=== PATIENT | male | born 1945 | race Caucasian/White ===

== ENCOUNTER 2020-07-22 04:34 | Emergency (ER) | payer MEDICARE, OTHER ==
[~2020-07-22] VITALS: Ht 157.5 cm; Wt 59.1 kg
[~2020-07-22 04:34] MED LIST: ACET-3284 PO; ATOR40TA71 PO; ATRIN INH; BENA5TAB39 PO; BENZ-16 PO; CLOP75TA15 PO; CYAN250T3 PO; FOLI0.4T6 PO; LOPE2CAP PO; MAGN400O6 PO; MELO-100 PO; OSC500T PO; UMEC62.5 PO
[2020-07-22] MEDS ORDERED: methylPREDNISolone sod succ 125mg/2ml vial IV ONE (04:40)
[2020-07-22] MEDS ORDERED: albuterol 2.5 MG/3 ML nebule NEB ONE (04:40)
[2020-07-22 04:59] LABS: BASOPHILS % (AUTO) 0.2 % (0-1); EOSINOPHILS # (AUTO) 0.1 X10'3 (0-0.9); EOSINOPHILS % (AUTO) 1.2 % (0-6); HEMATOCRIT 42.4 % (42.0-52.0); HEMOGLOBIN 14.5 g/dl (14.0-17.9); LYMPHOCYTES # (AUTO) 1.4 X10'3 (1.1-4.8); LYMPHOCYTES % (AUTO) 17.9 % (21-51); MEAN CORPUSCULAR HEMOGLOBIN 36.1 PG (27.0-31.0); MEAN CORPUSCULAR HGB CONC 34.2 g/dL (33.0-36.5); MEAN CORPUSCULAR VOLUME 105.6 FL (78-98); MEAN PLATELET VOLUME 7.7 FL (7.4-10.4); MONOCYTES # (AUTO) 0.3 X10'3 (0-0.9); MONOCYTES % (AUTO) 4.5 % (2-12); NEUTROPHILS # (AUTO) 5.8 X10'3 (1.8-7.7); NEUTROPHILS % (AUTO) 76.2 % (42-75); PLATELET COUNT 110 X10'3 (140-440); RED BLOOD COUNT 4.02 X10'6 (4.70-6.10); RED CELL DISTRIBUTION WIDTH 13.5 % (11.5-14.5); WHITE BLOOD COUNT 7.7 X10'3 (4.5-11.0)
[2020-07-22 05:14] LABS: ALANINE AMINOTRANSFERASE 24 U/L (12-78); ALBUMIN 3.5 G/DL (3.4-5.0); ALBUMIN/GLOBULIN RATIO 1.1 (1.1-1.5); ALKALINE PHOSPHATASE 69 IU/L (46-116); ANION GAP 5 (8-16); ASPARTATE AMINO TRANSFERASE 18 U/L (10-37); BILIRUBIN,TOTAL 0.7 MG/DL (0.1-1.0); BLOOD UREA NITROGEN 17 MG/DL (7-18); BUN/CREATININE RATIO 15.3 (5.4-32.0); CALCIUM 8.3 MG/DL (8.5-10.1); CHLORIDE 108 MMOL/L (99-107); CREATININE 1.11 MG/DL (0.60-1.10); GLUCOSE 111 MG/DL (70-104); POTASSIUM 4.4 MMOL/L (3.5-5.1); SODIUM 143 MMOL/L (135-145); TOTAL CARBON DIOXIDE 30.5 MMOL/L (24-32); TOTAL PROTEIN 6.7 G/DL (6.4-8.2); eGFR 65 ML/MIN
[2020-07-22] MEDS ORDERED: PRED20TA PO (05:39)
--- NOTE | 2020-07-22 06:35 | NUR ---
pt alert no distress noted. warm blanket given to pt.
[2020-07-22 06:36] VITALS: BP 122/75
--- NOTE | 2020-07-22 08:57 | NUR ---
CALL EDILBERTO CARGO AT 7 AM TO VERIFY TRANSPORT.
== END 2020-07-22 09:19 | disposition home or self-care (01) ==
LOC: ER 04:34
DX: J45.901 Unspecified asthma with (acute) exacerbation (principal); R06.02 Shortness of breath; R11.10 Vomiting, unspecified; I25.10 Atherosclerotic heart disease of native coronary artery without angina pectoris; Z86.73 Personal history of transient ischemic attack (TIA), and cerebral infarction without residual deficits; Z98.890 Other specified postprocedural states; Z88.5 Allergy status to narcotic agent; Z88.0 Allergy status to penicillin; Z88.8 Allergy status to other drugs, medicaments and biological substances; Z79.899 Other long term (current) drug therapy
CPT/HCPCS: 36415; 71045; 80053; 83880; 84484; 85025; 93005; 94640; 94644; 96374; 99285; J2930; 94760; A7015

== ENCOUNTER 2022-11-02 08:07 | Outpatient (CLI) | payer MEDICARE, OTHER ==
[2022-11-02] MEDS ORDERED: iohexol 300mg/ml 100ml inj. ONE (08:47)
== END 2022-11-02 23:59 | disposition home or self-care (01) ==
LOC: RAD 08:07
PROVIDERS: ATTEND Family Medicine
DX: J43.9 Emphysema, unspecified (principal); J90 Pleural effusion, not elsewhere classified; I51.7 Cardiomegaly; R06.02 Shortness of breath; Z87.891 Personal history of nicotine dependence
CPT/HCPCS: 71270; J3490; Q9967

== ENCOUNTER 2023-03-30 10:01 | Outpatient (CLI) | payer MEDICARE, OTHER | END 2023-03-30 23:59 | disposition home or self-care (01) | LOC: CARD DIAG 10:01 | PROVIDERS: ATTEND Family Medicine | DX: I08.8 Other rheumatic multiple valve diseases (principal) | CPT/HCPCS: 93306 ==